=== PATIENT | female | born 1985 | race Caucasian/White ===

== ENCOUNTER 2020-07-26 04:28 | Inpatient (IN) ==
[2020-07-26] MEDS: RINGER'S SOLUTION,LACTATED 1,000 ML IV PRN ×2 (04:54→06:12)
[2020-07-26] MEDS ORDERED: ceFAZolin SODIUM 1 GM VIAL ONE (06:39)
--- NOTE | 2020-07-26 06:41 | ANES ---
Anesthesia Pre Procedure Eval Vitals/Labs: Last Vital Signs Temp 36.7 C 07/26/20 05:37 Pulse 97 07/26/20 05:37 Resp 16 07/26/20 05:37 BP 125/73 07/26/20 05:37 Pulse Ox 98 07/26/20 05:37 HOME MEDICATIONS prenat.vits,bria,dgr-dlzo-poszr 1 tab PO DAILY 12/21/19 [Last Taken 07/25/20 08:00] ferrous sulfate 325 mg (65 mg iron) tablet,delayed release 325 mg PO BID #60 tab 05/09/20 [Last Taken 07/24/20 20:00] famotidine-Ca carb-mag hydrox 10 mg-800 mg-165 mg chewable tablet 1 tab PO DAILY 05/22/20 [Last Taken 07/25/20] Allergies/Adverse Reactions: Allergies Allergy/AdvReac Type Severity Reaction Status Date / Time No Known Allergies Allergy Verified 07/17/20 11:02 - Planned Procedure Planned Procedure: Repeat Section w/abd scar revision Medication List Reviewed:: Yes Allergies Verified: Yes Medical History (Last Reviewed 07/26/20 @ 06:40 by Gaurav Lindsey CRNA) History of gestational hypertension (Chronic) Anemia (Acute) Onset Date: 05/09/20 w/ 05/09/20 Wears contact lenses Abnormal Pap smear of cervix "long time ago" follow pap smear WNL , spontaneous Onset Date: ~2016 6-8 wks Gestational hypertension Onset Date: ~2017 late Menorrhagia Shingles Surgical History (Last Reviewed 07/26/20 @ 06:40 by Gaurav Lindsey CRNA) H/O arthroscopic knee surgery Left- H/O colonoscopy Onset Date: ~2015 Previous section Onset Date: ~09/2018 failure to progress Family History (Last Reviewed 07/26/20 @ 06:40 by Gaurav Lindsey CRNA) Father Colon cancer, Onset Age: 53 Grandmother Breast CA, Onset Age: 60 Aunt Breast CA, Onset Age: 55 Grandmother Alzheimers disease Grandfather Leukemia Grandfather Diabetes Family/Other Colon cancer paternal- 50's - Family Anesthesia History Family History:: no untoward family reactions to anesthesia - Airway/Neck/Teeth Within Normal Limits:: Yes Teeth Condition: intact Neck Exam: full range of motion Mallampatti Score: 2 Thyromental (T-M) distance: > 6 cm Mandibulo Hyoid distance: > 3 cm - Respiratory Respiratory Physical: lungs clear Smoking Status: Never smoker Sleep Apnea currently treated: No Sleep Apnea by current assessment: No - Cardiovascular Tolerate Activity: Good Heart Sounds: S1 & S2, Regular - Gastrointestinal NPO since: MN - Anesthesia Assessment and Plan ASA Class: PS, II Anesthesia Type Plan: Spinal - Bilat TAP block Planned difficult intubation/equipment available: No
[2020-07-26] MEDS ORDERED: BUPIVACAINE HCL/EPINEPHRINE 50 ML VIAL IJ ONE (06:43)
[2020-07-26] MEDS ORDERED: NORMAL SALINE 20 ML VIAL ONE (06:43)
[2020-07-26] MEDS ORDERED: EPINEPHrine 1 MG/ML AMPUL ONE (06:44)
[2020-07-26] MEDS ORDERED: Oxytocin/Ringers Lactate 20 UNITS/1,000 ML BAG IV ONE (06:52)
[2020-07-26] MEDS ORDERED: MIDAZOLAM HCL/PF 1 MG/ML VIAL ONE (07:48)
[2020-07-26] MEDS ORDERED: ONDANSETRON HCL/PF 2 MG/ML VIAL ONE (07:49)
[2020-07-26] MEDS ORDERED: fentaNYL CITRATE/PF 50 MCG/ML AMPUL ONE (07:49)
[2020-07-26] MEDS ORDERED: BISACODYL 10 MG SUPP.RECT RC PRN (08:52)
[2020-07-26] MEDS ORDERED: ONDANSETRON HCL/PF 2 MG/ML VIAL IV PRN (08:52)
--- NOTE | 2020-07-26 08:58 | OR ---
Operative Report - Dictated Report Narrative: Indication: 34-year-old 2 para 1 at 39-4/7 weeks with prior section desires repeat section. status: Planned Pre Operative Diagnosis: 39-4/7-week intrauterine . Prior section. Abdominal keloid formation. Post Operative Diagnosis: Same. 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 Abdominal scar revision - 16cm. Lysis of adhesions Surgeon: Edna Briseno DO Transportation Equipment Painter: OR Staff Anesthesia: Spinal, TAP block Estimated Blood Loss: 360 mL Urine Output: 150 mL clear urine Fluids Replacement: 2200 mL of crystalloid Drains: Acharya to gravity Surgical Complications: None Specimens: Placenta to freezer Findings: Female born at 0743 on 07/26/2018 with Apgars 8 and 9, weighing 3700 g in cephalic presentation with tight nuchal cord x1. Normal uterus, tubes, ovaries. Loop of omental adhesions to the bladder and left pelvic sidewall peritoneal surface. Technique: The patient was taken to the operating room and placed in dorsal supine position with a left lateral tilt. After adequate spinal anesthesia, acharya catheter inserted, SCDs placed, and 2 g of Ancef given preoperatively, the previous scar was excised in an elliptical fashion and the abdominal cavity was entered using sharp and blunt dissection. Two rolled laps were placed in the pericolic gutters on either side of the uterus. A transverse incision was made in the lower uterine segment and extended laterally and upwardly with digital traction. Clear fluid was noted upon amniotomy. The was delivered easily. The nuchal cord cord was reduced then clamped and cut. Infant was handed off to awaiting payment rep. The placenta was allowed to deliver spontaneously. The uterus was cleared of clot and debris. Uterine incision was closed with 0 Vicryl using a running stitch. A second imbricating layer was placed. Bleeding in midline was controlled with a single [id number] 0 Vicryl suture. Excellent hemostasis was noted. The rolled laps were removed from the abdominal cavitiy. Omental adhesions were sharply dissected using cut and coag function on the Bovie. 3 x 3 cm piece of Interceed was placed over the raw surface area in attempt to reduce recurrent adhesion formation. The peritoneum was closed with a running 3-0 Monocryl. The same suture was used to approximate the rectus and pyramidalis muscles. The fascia was closed with a running 0 Vicryl. The subcutaneous layer was closed with a running 3-0 Monocryl. The same suture was used to approximate the subdermal layer. The skin was closed with a running 4-0 Monocryl and Dermabond. Sponge, lap, needle, and instrument count were correct x 2. Disposition: To post anesthesia care unit in good condition History for MU History for MU Definition: * The number of deliveries resulting in a live the patient experienced prior to current hospitalization * The previous delivery of live twins or any live multiple gestation is considered one live event. *If primagravida or nulliparous is documented select zero for the number of previous live births. Live Events: Live Events: 1
[2020-07-26] MEDS ORDERED: PRENAT VITS CAL MIN IRON FOLIC PO SCH (09:00)
--- NOTE | 2020-07-26 09:11 | ANES ---
Post Anesthesia Discharge - Transfer of Care Transfer of Care handoff given to nurse: Yes - Discharge from PACU Discharge from PACU when meets criteria: Yes
[2020-07-26] MEDS: IBUPROFEN 800 MG TABLET PO PRN ×2 (09:46→18:11)
[2020-07-26] MEDS: oxyCODONE HCL/ACETAMINOPHEN 1 TAB TABLET PO PRN ×4 (09:46→21:23)
--- NOTE | 2020-07-26 12:03 | ANES ---
Post Anesthesia Assessment - Vital Signs Vitals: Last Vital Signs Temp 36.2 C 07/26/20 09:30 Pulse 80 07/26/20 10:30 Resp 20 07/26/20 10:30 BP 129/73 07/26/20 10:30 Pulse Ox 100 07/26/20 10:30 Airway Patency: Normal - Mental Status Level Of Consciousness: Awake - Pain Level Pain Score: 2 - N/V Assessment Nausea/Vomiting Presence: None Dehydration:: No
--- NOTE | 2020-07-26 12:05 | ANES ---
Anesthesia Procedure Note Procedure Note: ANESTHESIA PROCEDURE NOTE Date of procedure: 07/26/2020. Time of procedure: 08 50. Performed by: Nick Lindsey CRNA Grain Roaster: Ivanna Shahid RN . Preprocedure diagnosis: Status post section. Post procedure diagnosis: Same. Procedure: Ultrasound-guided bilateral tap block Indications: Postoperative analgesia. Findings: Patient was placed in a supine position in the PACU. Patient's right abdominal wall was prepped with ChloraPrep. Ultrasound utilized to identify the fascial layer between the internal oblique and trans-abdominus muscles. A 20- gauge 4 inch regional block needle was advanced under ultrasound guidance until tip of needle was placed just distally to fascial layer. 20 mL of 0.25% Marcaine with epinephrine 1 200,000 was injected with adequate spread of local anesthesia noted. Procedure was then repeated on patient's left side. EBL: Minimal. Fluids: N/A. Specimen: N/A. Post procedure condition: The patient tolerated the procedure well. No complications were noted. Thank you for this consultation Nick Lindsey CRNA
[2020-07-26] MEDS: FERROUS SULFATE 325 MG TABLET PO SCH ×2 (12:30→20:42)
[2020-07-26] MEDS: DOCUSATE SODIUM 100 MG CAPSULE PO SCH ×2 (12:30→20:42)
[2020-07-26] MEDS: PRENATAL VITS96/IRON FUM/FOLIC 1 TAB TABLET PO SCH (12:31)
[2020-07-26] MEDS: ENOXAPARIN SODIUM 40 MG/0.4 ML SYRG SC SCH (16:39)
[2020-07-26] MEDS: SIMETHICONE 80 MG TAB.CHEW PO PRN (22:18)
[2020-07-27] MEDS: IBUPROFEN 800 MG TABLET PO PRN ×4 (00:35→19:23)
[2020-07-27] MEDS ORDERED: traMADol HCL 50 MG TABLET PO ONE (01:08)
[2020-07-27] MEDS ORDERED: ceFAZolin SODIUM 1 GM VIAL IV PRN (06:00)
[2020-07-27] MEDS: SIMETHICONE 80 MG TAB.CHEW PO PRN ×3 (06:45→19:26)
[2020-07-27] MEDS: oxyCODONE HCL/ACETAMINOPHEN 1 TAB TABLET PO PRN ×3 (08:41→18:07)
[2020-07-27] MEDS: DOCUSATE SODIUM 100 MG CAPSULE PO SCH (09:16)
[2020-07-27] MEDS: SENNOSIDES 8.6 MG TABLET PO PRN ×2 (09:16→21:18)
[2020-07-27] MEDS: FERROUS SULFATE 325 MG TABLET PO SCH (09:17)
[2020-07-27] MEDS: PRENATAL VITS96/IRON FUM/FOLIC 1 TAB TABLET PO SCH (09:17)
--- NOTE | 2020-07-27 13:06 | PN ---
Subjective - Date and Time Seen Date: 07/27/20 Time: 08:50 Objective - Vitals Vitals: Last Vital Signs Temp 36.4 C 07/27/20 07:13 Pulse 93 07/27/20 07:13 Resp 18 07/27/20 07:13 BP 118/76 07/27/20 07:13 Pulse Ox 99 07/27/20 07:13 Patient had a rough night with shoulder and rib pain. Currently states her pain is minimal and not requiring medication. Tolerating regular diet. Ambulating without difficulty. Pain well controlled. Lochia wnl. Abdomen - soft, appropriately tender Incision -clean, dry, intact uterus - firm, at umbilicus -1 No calf tenderness Impression: Post op day #1 s/p repeat section. Abdominal scar revision Plan: Continue routine post-operative/ care Cauti Physician Documentation - Urinary Catheter Management Urethral ([place]) Date of Insertion: 07/26/20 Time of Insertion: 07:25 Date of Removal: 07/26/20 Time of Removal: 20:45
[2020-07-27] MEDS: ENOXAPARIN SODIUM 40 MG/0.4 ML SYRG SC SCH (17:55)
[2020-07-28] MEDS: IBUPROFEN 800 MG TABLET PO PRN ×3 (01:45→14:45)
[2020-07-28] MEDS: DOCUSATE SODIUM 100 MG CAPSULE PO SCH ×2 (05:23→08:13)
[2020-07-28] MEDS: FERROUS SULFATE 325 MG TABLET PO SCH ×2 (05:24→10:58)
[2020-07-28] MEDS: PRENATAL VITS96/IRON FUM/FOLIC 1 TAB TABLET PO SCH (10:59)
[2020-07-28 12:50] VITALS: BP 136/78
--- NOTE | 2020-07-28 17:18 | PN ---
Subjective - Date and Time Seen Date: 07/28/20 Time: 17:16 Objective - Vitals Vitals: Last Vital Signs Temp 36.8 C 07/28/20 12:49 Pulse 87 07/28/20 12:49 Resp 18 07/28/20 12:49 BP 136/78 07/28/20 12:49 Pulse Ox 97 07/28/20 12:49 Patient denies complaints. Ambulating well. Tolerating regular diet. Pain well controlled. Breast-feeding. Lochia wnl. Abdomen - soft, appropriately tender Incision -clean, dry, intact uterus - firm, at umbilicus -2 No calf tenderness Impression: Post op day #2 s/p repeat section. Patient desires early discharge. Plan: Continue routine post-operative/ care. Routine discharge instructions given Cauti Physician Documentation - Urinary Catheter Management Urethral ([place]) Date of Insertion: 07/26/20 Time of Insertion: 07:25 Date of Removal: 07/26/20 Time of Removal: 20:45
== END 2020-07-28 18:15 | disposition home or self-care (01) | DRG 788 ==
LOC: OB 04:28 → MS 07-27 19:40
PROVIDERS: ADMIT Obstetrics & Gynecology; ATTEND Obstetrics & Gynecology